=== PATIENT | female | born 2000 ===

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

== ENCOUNTER 2018-01-25 12:37 | Emergency (ER) | payer MEDICAID ==
[2018-01-25 12:37] VITALS: BMI 17.2
[2018-01-25 12:47] VITALS: O2SAT 100
--- NOTE | 2018-01-25 13:54 | ED PDOC ---
HPI: General Adult Time Seen by Provider: 01/25/18 13:08 Chief Complaint (Nursing): ENT Problem Chief Complaint (Provider): ENT Problem History Per: Patient History/Exam Limitations: no limitations Onset/Duration Of Symptoms: Days Current Symptoms Are (Timing): Still Present Additional Complaint(s): 17 year old female presents to the ED complaining of throat pain. States she has throat swelling since last night. Reports of difficulty swallowing, difficulty breathing, and neck pain. PMD: Non H Provider Past Medical History Reviewed: Historical Data, Nursing Documentation, Vital Signs Vital Signs: Last Vital Signs Temp 97.8 F 01/25/18 12:45 Pulse 90 01/25/18 12:45 Resp 16 01/25/18 12:45 BP 97/68 L 01/25/18 12:45 Pulse Ox 100 01/25/18 16:50 - Medical History PMH: Anxiety, Depression, Paranoia Denies: Diabetes, Hepatitis, HIV, HTN, Seizures, Sexually Transmitted Disease - Surgical History Surgical History: No Surg Hx - Family History Family History: States: Unknown Family Hx - Home Medications Home Medications: Ambulatory Orders Medication Instructions Recorded Ibuprofen [Motrin Tab] 1 tab PO Q6 PRN #15 tab 11/08/17 Amoxicillin/Clavulanate [Augmentin 1 tab PO BID #20 tab 01/25/18 875 MG-125 MG] Methylprednisolone [Medrol Dose 1 tab PO ASDIR #21 mg 01/25/18 Pack (21 tabs)] - Allergies Allergies/Adverse Reactions: Allergies Allergy/AdvReac Type Severity Reaction Status Date / Time No Known Allergies Allergy Verified 08/18/17 20:30 Review of Systems ROS Statement: Except As Marked, All Systems Reviewed And Found Negative ENT: Positive for: Throat Pain, Throat Swelling Musculoskeletal: Positive for: Neck Pain Neurological: Positive for: Headache Physical Exam - Reviewed Nursing Documentation Reviewed: Yes Vital Signs Reviewed: Yes - Physical Exam Appears: Positive for: Non-toxic, No Acute Distress Head Exam: Positive for: ATRAUMATIC, NORMAL INSPECTION, NORMOCEPHALIC Skin: Positive for: Normal Color, Warm, Dry ENT: Positive for: Tonsillar Exudate (erythema), Tonsillar Swelling (3+ tonsils bilaterally), Other (hot potato voice, excessive mouth secretions) Neck: Negative for: Normal (right-sided tenderness) Cardiovascular/Chest: Positive for: Regular Rate, Rhythm. Negative for: Murmur Respiratory: Positive for: Normal Breath Sounds. Negative for: Decreased Breath Sounds, Accessory Muscle Use, Respiratory Distress Neurologic/Psych: Positive for: Alert, Oriented (x3). Negative for: Motor/ Sensory Deficits - Laboratory Results Result Diagrams: 01/25/18 13:50 01/25/18 13:50 - ECG O2 Sat by Pulse Oximetry: 100 (RA) Pulse Ox Interpretation: Normal Medical Decision Making Medical Decision Making: Time: 131 Initial impression: r/o SURVEY TECHNICIAN Initial plan: --Neck Soft Tissue w/ Contrast [CT] --CMP --Urine --CBC w/ Differential --Decadron Inj 10mg --Toradol 30mg --Tylenol 650mg --Unasyn 3gm --Urinalysis Time: 1635 PROCEDURE: CT NECK WITH CONTRAST HISTORY: r/o SURVEY TECHNICIAN COMPARISON: None TECHNIQUE: CT of the neck with intravenous contrast. Coronal and sagittal reformats generated. Intravenous contrast dose: Omnipaque 300, 75 cc Radiation dose: DLP 329.76 mGy-cm This CT exam was performed using one or more of the following dose reduction techniques: Automated exposure control, adjustment of the mA and/or kV according to patient size, and/or use of iterative reconstruction technique. FINDINGS: There is prominence of the tonsillar pillars bilaterally without focal mass identifiable or cystic collection. No abscess is appreciated throughout the supra or infrahyoid neck in fact. The findings likely reflect tonsillitis. The lower nasopharyngeal airways somewhat compromise secondarily with the oropharynx widely patent posteriorly. No oral cavity lesions identified with the inferior pharynx, larynx and trachea were unremarkable. The vascular anatomy is unremarkable as well as incidental imaging through the bilateral pulmonary apices. GLANDS: Parotid and submandibular glands unremarkable. Normal size thyroid gland, without nodule. LYMPH NODES: Normal. No lymphadenopathy. CERVICAL SPINE: No fracture or focal lesion. OTHER FINDINGS: None. IMPRESSION: Findings most compatible with tonsillitis without phlegmon or discrete cyst. Asymmetry in enlargement makes difficult to exclude underlying focal lesion though none is clearly identified. Mild compromise of the lower days or pharyngeal airway is caused by tonsillar pillar enlargement bilaterally. The remainder of the examination is unremarkable Discharge with referral to ENT and rx augmentin and medrol dose pack Scribe Attestation: Documented by Mahesh Ferraro, acting as a scribe for Jace Mai PA-C. Provider Scribe Attestation: All medical record entries made by the Scribe were at my direction and personally dictated by me. I have reviewed the chart and agree that the record accurately reflects my personal performance of the history, physical exam, medical decision making, and the department course for this patient. I have also personally directed, reviewed, and agree with the discharge instructions and disposition. Disposition - Clinical Impression Clinical Impression: Acute tonsillitis, Tonsillitis, Streptococcal sore throat - Patient ED Disposition Is Patient to be Admitted: No Doctor Will See Patient In The: Office - Disposition Referrals: John Bell MD [Staff Provider] - Shahbaz Alcantar DO [Doctor Optometry] - Disposition: Routine/Home Disposition Time: 16:55 Condition: STABLE Prescriptions: Amoxicillin/Clavulanate [Augmentin 875 MG-125 MG] 1 tab PO BID #20 tab Methylprednisolone [Medrol Dose Pack (21 tabs)] 1 tab PO ASDIR #21 mg Instructions: Strep Throat (DC), Sore Throat, Adult (DC), Bacterial Upper Respiratory Infection, Adult (DC) Forms: [employer] (Citizen Of [place]), [facility] ED School/Work Excuse
[2018-01-25 14:15] LABS: BASO % 0.1 % (0.0-2.0); EOS # 0.1 K/uL (0.0-0.7); EOS % 1.1 % (0.0-4.0); HEMOGLOBIN 14.3 g/dL (12.0-16.0); LYMPH # 1.1 K/uL (1.0-4.3); LYMPH % 10.1 % (20.0-40.0); MEAN CELL VOLUME 88.6 fl (81.0-99.0); MEAN CORPUSCULAR HEMOGLOBIN 29.9 pg (27.0-31.0); MEAN CORPUSCULAR HGB CONC 33.8 g/dL (33.0-37.0); MEAN PLATELET VOLUME 8.4 fl (7.2-11.7); MONO # 1.2 K/uL (0.0-0.8); MONO % 11.1 % (0.0-10.0); NEUT # 8.5 K/uL (1.8-7.0); NEUT % 77.6 % (50.0-75.0); RBC 4.77 Mil/uL (3.80-5.20); RED CELL DISTRIBUTION WIDTH 13.4 % (11.5-14.5)
[2018-01-25 14:26] LABS: ALB/GLOB RATIO 1.2 (1.0-2.1); ALBUMIN 4.6 g/dL (3.5-5.0); ALT/SGPT 23 U/L (9-52); AST/SGOT 32 U/L (14-36); BLOOD UREA NITROGEN 7 mg/dl (7-17); CALCIUM 9.4 mg/dL (8.4-10.2); GFR AFRICAN-AMERICAN > 60; GFR NON-AFRICAN AMERICAN > 60; SQUAMOUS EPITHIAL 5 /hpf (0-5); URINE BILIRUBIN NEGATIVE (NEGATIVE); URINE BLOOD NEGATIVE (NEGATIVE); URINE CLARITY SLIGHTY-CLOUDY (Clear); URINE COLOR YELLOW (YELLOW); URINE GLUCOSE (UA) NEG (Normal); URINE LEUKOCYTE ESTERASE NEG Leu/uL (Negative); URINE PROTEIN NEGATIVE (NEGATIVE); URINE UROBILINOGEN 0.2-1.0 mg/dL (0.2-1.0)
[2018-01-25] MEDS ORDERED: Sodium Chloride 0.9% 50 ML IV ONE (15:18)
[2018-01-25] MEDS ORDERED: Iohexol 300 100 ML IJ ONE (15:18)
--- NOTE | 2018-01-25 16:38 | CT ---
PROCEDURE: CT NECK WITH CONTRAST HISTORY: r/o DENTAL INTERN COMPARISON: None TECHNIQUE: CT of the neck with intravenous contrast. Coronal and sagittal reformats generated. Intravenous contrast dose: Omnipaque 300, 75 cc Radiation dose: DLP 329.76 mGy-cm This CT exam was performed using one or more of the following dose reduction techniques: Automated exposure control, adjustment of the mA and/or kV according to patient size, and/or use of iterative reconstruction technique. FINDINGS: There is prominence of the tonsillar pillars bilaterally without focal mass identifiable or cystic collection. No abscess is appreciated throughout the supra or infrahyoid neck in fact. The findings likely reflect tonsillitis. The lower nasopharyngeal airways somewhat compromise secondarily with the oropharynx widely patent posteriorly. No oral cavity lesions identified with the inferior pharynx, larynx and trachea were unremarkable. The vascular anatomy is unremarkable as well as incidental imaging through the bilateral pulmonary apices. GLANDS: Parotid and submandibular glands unremarkable. Normal size thyroid gland, without nodule. LYMPH NODES: Normal. No lymphadenopathy. CERVICAL SPINE: No fracture or focal lesion. OTHER FINDINGS: None. IMPRESSION: Findings most compatible with tonsillitis without phlegmon or discrete cyst. Asymmetry in enlargement makes difficult to exclude underlying focal lesion though none is clearly identified. Mild compromise of the lower days or pharyngeal airway is caused by tonsillar pillar enlargement bilaterally. The remainder of the examination is unremarkable.
[2018-01-25 17:21] VITALS: BP 100/72; PULSE 80; RESP 17; TEMP 97.9
== END 2018-01-25 17:19 | disposition home or self-care (01) ==
LOC: H.ER 12:37
DX: J03.90 Acute tonsillitis, unspecified (principal); J02.0 Streptococcal pharyngitis; F41.9 Anxiety disorder, unspecified; F32.9 Major depressive disorder, single episode, unspecified
CPT/HCPCS: 70491; 80053; 81003; 81025; 85025; 96365; 96375; 99283; J0295; J1100; J1885; Q9967

== ENCOUNTER 2018-03-07 18:45 | Emergency (ER) | payer MEDICAID ==
[2018-03-07 18:45] VITALS: BMI 17.2
[2018-03-07 19:05] VITALS: RESP 18
--- NOTE | 2018-03-07 19:48 | ED PDOC ---
HPI: General Adult Time Seen by Provider: 03/07/18 19:46 Chief Complaint (Nursing): Female Genitourinary Chief Complaint (Provider): DYSURIA/SYNCOPE History Per: Patient (17 Y/O FEMALE HERE FOR EVALUATION OF DYSURIA THIS WEEK ASSOCIATED WITH BURNING WITH URINATION/LOWER ABDOMINAL PAIN. DENIES ANY VAG DISCHARGE. STATES SHE HAS ALSO SUFFERED MULTIPLE EPISODES OF SYNCOPE LAST EPISODE 1 MONTH AGO AND IS CONCERNED REGARDING THIS. DENIES ANY CHEST PAIN/ETC. ) Past Medical History Reviewed: Historical Data, Nursing Documentation, Vital Signs Vital Signs: Last Vital Signs Temp 98.2 F 03/07/18 19:02 Pulse 67 03/07/18 19:02 Resp 18 03/07/18 19:02 BP 111/75 03/07/18 19:02 Pulse Ox 100 03/07/18 19:52 - Medical History PMH: Anxiety, Depression, Paranoia Denies: Diabetes, Hepatitis, HIV, HTN, Seizures, Sexually Transmitted Disease - Family History Family History: States: Unknown Family Hx - Home Medications Home Medications: Ambulatory Orders Medication Instructions Recorded Ibuprofen [Motrin Tab] 1 tab PO Q6 PRN #15 tab 11/08/17 Amoxicillin/Clavulanate [Augmentin 1 tab PO BID #20 tab 01/25/18 875 MG-125 MG] Methylprednisolone [Medrol Dose 1 tab PO ASDIR #21 mg 01/25/18 Pack (21 tabs)] Cephalexin [Keflex] 500 mg PO TID #15 capsule 03/07/18 Phenazopyridine HCl [Pyridium] 200 mg PO Q12 PRN #6 tablet 03/07/18 - Allergies Allergies/Adverse Reactions: Allergies Allergy/AdvReac Type Severity Reaction Status Date / Time No Known Allergies Allergy Verified 03/07/18 19:02 Review of Systems ROS Statement: Except As Marked, All Systems Reviewed And Found Negative Physical Exam - Reviewed Nursing Documentation Reviewed: Yes Vital Signs Reviewed: Yes - Physical Exam Appears: Positive for: Well, Non-toxic, No Acute Distress Head Exam: Positive for: ATRAUMATIC, NORMAL INSPECTION, NORMOCEPHALIC Skin: Positive for: Normal Color, Warm, DRY Eye Exam: Positive for: EOMI, Normal appearance, PERRL ENT: Positive for: Normal ENT Inspection Neck: Positive for: Normal, Painless ROM Cardiovascular/Chest: Positive for: Regular Rate, Rhythm Respiratory: Positive for: CNT, Normal Breath Sounds Gastrointestinal/Abdominal: Positive for: Normal Exam, Soft. Negative for: Tenderness Back: Positive for: Normal Inspection. Negative for: L CVA Tenderness, R CVA Tenderness Extremity: Positive for: Normal ROM Neurologic/Psych: Positive for: Alert, Oriented - ECG ECG Rhythm: Positive for: Sinus Bradycardia (54BPM NO ECTOPY NO ACUTE CHANGES) O2 Sat by Pulse Oximetry: 100 Disposition - Clinical Impression Clinical Impression: Urinary tract infection, Syncope - Patient ED Disposition Is Patient to be Admitted: Transfer of Care - Disposition Disposition: Transfer of Care Disposition Time: 20:00 Condition: FAIR Prescriptions: Cephalexin [Keflex] 500 mg PO TID #15 capsule Phenazopyridine HCl [Pyridium] 200 mg PO Q12 PRN #6 tablet PRN Reason: Urinary Discomt Instructions: Syncope (Fainting) Patient Signed Over To: Naomie Black Handoff Comments: PENDING BLOODWORK
[2018-03-07 20:07] LABS: SQUAMOUS EPITHIAL 23 /hpf (0-5); URINE BACTERIA OCC (<OCC); URINE BILIRUBIN NEGATIVE (NEGATIVE); URINE BLOOD NEGATIVE (NEGATIVE); URINE CLARITY CLOUDY (Clear); URINE COLOR YELLOW (YELLOW); URINE GLUCOSE (UA) NEG (Normal); URINE LEUKOCYTE ESTERASE LARGE Leu/uL (Negative); URINE PROTEIN 100 mg/dL (NEGATIVE); URINE UROBILINOGEN 0.2-1.0 mg/dL (0.2-1.0)
[2018-03-07 21:12] LABS: BASO % 0.2 % (0.0-2.0); EOS # 0.1 K/uL (0.0-0.7); EOS % 1.3 % (0.0-4.0); HEMOGLOBIN 13.2 g/dL (12.0-16.0); LYMPH # 1.9 K/uL (1.0-4.3); LYMPH % 27.4 % (20.0-40.0); MEAN CELL VOLUME 88.7 fl (81.0-99.0); MEAN CORPUSCULAR HEMOGLOBIN 29.7 pg (27.0-31.0); MEAN CORPUSCULAR HGB CONC 33.5 g/dL (33.0-37.0); MEAN PLATELET VOLUME 8.5 fl (7.2-11.7); MONO # 0.7 K/uL (0.0-0.8); MONO % 10.2 % (0.0-10.0); NEUT # 4.2 K/uL (1.8-7.0); NEUT % 60.9 % (50.0-75.0); RBC 4.45 Mil/uL (3.80-5.20); RED CELL DISTRIBUTION WIDTH 12.8 % (11.5-14.5); WHITE BLOOD COUNT 6.9 K/uL (4.8-10.8)
[2018-03-07 21:39] LABS: ALB/GLOB RATIO 1.2 (1.0-2.1); ALBUMIN 4.3 g/dL (3.5-5.0); ALT/SGPT 19 U/L (9-52); AST/SGOT 27 U/L (14-36); BLOOD UREA NITROGEN 15 mg/dl (7-17); CALCIUM 9.3 mg/dL (8.4-10.2); GFR AFRICAN-AMERICAN > 60; GFR NON-AFRICAN AMERICAN > 60
--- NOTE | 2018-03-07 22:39 | ED PDOC ---
- Laboratory Results Result Diagrams: 03/07/18 21:04 03/07/18 21:04 - ECG O2 Sat by Pulse Oximetry: 100 - Progress ED Course And Treament: Case endorsed to freelance writer from Clement BLOCK pending labs, final dispo On re-eval, patient resting comfortably; states she is feeling better. Patient educated on findings, discharged with rx Keflex (dose given in ED), pyridium Advised follow up PMD 2-3 days. Fluids Return precautions given Disposition - Clinical Impression Clinical Impression: Urinary tract infection, Syncope - POA Present On Arrival: None - Disposition Disposition: Routine/Home Disposition Time: 22:39 Condition: IMPROVED Prescriptions: Cephalexin [Keflex] 500 mg PO TID #15 capsule Phenazopyridine HCl [Pyridium] 200 mg PO Q12 PRN #6 tablet PRN Reason: Urinary Discomt Instructions: Urinary Tract Infections in Adults, Syncope (Fainting)
[2018-03-07 22:54] VITALS: BP 109/70; PULSE 61; TEMP 97.9; O2SAT 97
--- NOTE | 2018-03-08 13:28 | CARD ---
APPROVED REPORT Date of service: 03/07/2018 EKG Measurement Heart [id number] <Conclusion> Sinus bradycardia Rightward axis Incomplete right bundle branch block Borderline ECG
== END 2018-03-07 22:54 | disposition home or self-care (01) ==
LOC: H.ER 18:45
DX: N39.0 Urinary tract infection, site not specified (principal); R55 Syncope and collapse; F32.9 Major depressive disorder, single episode, unspecified; F41.9 Anxiety disorder, unspecified

== ENCOUNTER 2018-06-27 08:53 | Emergency (ER) | payer MEDICAID ==
[2018-06-27 08:53] VITALS: BMI 17.2
[2018-06-27] MEDS ORDERED: Sodium Chloride 0.9% 1,000 ML IV STA (09:33)
--- NOTE | 2018-06-27 09:52 | ED PDOC ---
HPI: Abdomen Time Seen by Provider: 06/27/18 09:21 Chief Complaint (Nursing): Abdominal Pain Chief Complaint (Provider): Abdominal Pain History Per: Patient History/Exam Limitations: no limitations Onset/Duration Of Symptoms: Days (x1) Location Of Pain/Discomfort: Other (Below the umbilicus) Associated Symptoms: Fever, Vomiting, Urinary Symptoms (Darker smelly urine). denies: Other (vaginal bleeding or discharge) Additional Complaint(s): 17 years old female presents to ER for evaluation of fever and abdominal pain associated with vomiting onset last night. Patient knew she is in April and she was told it was too early to determine the date of . She reports her LNMP was in February but states she always had irregular menstruation. Patient states she was at a hospital last month and diagnosed with UTI. She is not compliant on her medication because she does not like medicine. Patient is agreeable today to take medications. When asked about painful urination she reports she only had been experiencing darker urine with a smell but no pain. Patient denies any vaginal discharge or bleeding. PMD: non provided Past Medical History Reviewed: Historical Data, Nursing Documentation, Vital Signs - Medical History PMH: Anxiety, Depression, Paranoia Denies: Diabetes, Hepatitis, HIV, HTN, Seizures, Sexually Transmitted Disease Other PMH: UTI - Surgical History Surgical History: No Surg Hx - Family History Family History: States: Unknown Family Hx - Social History Current smoker - smoking cessation education provided: No Alcohol: None Drugs: Denies - Home Medications Home Medications: Ambulatory Orders Medication Instructions Recorded RX: Ibuprofen [Motrin Tab] 1 tab PO Q6 PRN #15 tab 11/08/17 Amoxicillin/Clavulanate [Augmentin 1 tab PO BID #20 tab 01/25/18 875 MG-125 MG] Methylprednisolone [Medrol Dose 1 tab PO ASDIR #21 mg 01/25/18 Pack (21 tabs)] Cephalexin [Keflex] 500 mg PO TID #15 capsule 03/07/18 Phenazopyridine HCl [Pyridium] 200 mg PO Q12 PRN #6 tablet 03/07/18 Nitrofurantoin Macrocrystals 100 mg PO BID #10 cap 06/27/18 [Macrobid] - Allergies Allergies/Adverse Reactions: Allergies Allergy/AdvReac Type Severity Reaction Status Date / Time No Known Allergies Allergy Verified 03/07/18 19:02 Review of Systems ROS Statement: Except As Marked, All Systems Reviewed And Found Negative Constitutional: Positive for: Fever Gastrointestinal: Positive for: Vomiting, Abdominal Pain Genitourinary Female: Positive for: Other (Dark smelly urine). Negative for: Dysuria, Hematuria, Vaginal Discharge, Vaginal Bleeding Physical Exam - Reviewed Nursing Documentation Reviewed: Yes Vital Signs Reviewed: Yes - Physical Exam Appears: Positive for: Non-toxic, No Acute Distress Head Exam: Positive for: ATRAUMATIC, NORMOCEPHALIC Skin: Positive for: Normal Color, Warm, Dry Gastrointestinal/Abdominal: Positive for: Soft, Tenderness (to palpation below the umbilicus), Other (gravid) Back: Positive for: L CVA Tenderness, R CVA Tenderness Extremity: Positive for: Normal ROM Neurologic/Psych: Positive for: Alert, Oriented (x3), Other (Febrile) - Laboratory Results Result Diagrams: 06/27/18 09:53 06/27/18 09:53 Medical Decision Making Medical Decision Making: Time: 930 Initial plan: --Workup for UTI vs. pilonephritis --Determine IUP --Labs with urine and blood culture --IV fluids, Tylenol, Zofran --OB US 1150 OB US FINDINGS: UTERUS: Single Live intrauterine gestation. CRL measures 4.2 cm equivalent to 11 weeks and 0 day of gestational age. Gestational sac diameter measures 5.2 cm equivalent to 11 weeks and 0 day of gestational age. age (Ultrasound estimated): 11 weeks and 0 day Date of delivery (Ultrasound estimated) : 01/16/2019 Heart rate: One hundred fifty-nine bpm. Patrizia-gestational hemorrhage: None. Uterus measures 9.8 x 0.3 x 0.2 cm. No mass CERVIX: Long and closed. Cervical length measures 3.4 cm. No cervical abnormality seen. RIGHT OVARY: Not visualized. LEFT OVARY: Not visualized. FREE FLUID: None. OTHER FINDINGS: None. IMPRESSION: Single live intrauterine gestation with mean gestational age of 11 weeks and 0 day. The estimated date of delivery is 01/16/2019. There is a discrepancy with the clinical dates. Clinical follow-up is advised. Scribe Attestation: Documented by Consuelo Kennedy, acting as a scribe for Eliz Fuentes MD. Provider Scribe Attestation: All medical record entries made by the Scribe were at my direction and personally dictated by me. I have reviewed the chart and agree that the record accurately reflects my personal performance of the history, physical exam, medical decision making, and the department course for this patient. I have also personally directed, reviewed, and agree with the discharge instructions and disposition. 1245 US shows IUP with dates at 11 weeks and due date for 01/16/19. Labs WNL. UA unremarkable. Based on UTI symptoms and previous diagnosis of UTI which was not treated, will give Macrobid. Pt given [facility] and pt advised to follow up there. Return parameters discussed. Disposition - Clinical Impression Clinical Impression: Abdominal pain - Disposition [facility] [[facility]] Disposition: Routine/Home Disposition Time: 12:47 Condition: UNKNOWN Additional Instructions: take Medications as prescribed. Follow up with planned giving officer/beauty director in one week. Return to the emergency department if symptoms worsen or if new symptoms develop. Prescriptions: Nitrofurantoin Macrocrystals [Macrobid] 100 mg PO BID #10 cap Instructions: Acute Abdomen (Belly Pain), Adult (DC) Forms: [employer] (Persian) Print Language: SWAZI
[2018-06-27 09:59] LABS: VENOUS BLOOD GAS BASE EXCESS 0.8 mmol/L (0.0-2.0); VENOUS BLOOD GAS PCO2 49 mmHg (40-60); VENOUS BLOOD GAS PO2 22 mm/Hg (30-55); VENOUS BLOOD PH 7.35 (7.32-7.43)
[2018-06-27 10:04] LABS: SQUAMOUS EPITHIAL 4 /hpf (0-5); URINE BACTERIA RARE (<OCC); URINE BILIRUBIN NEGATIVE (NEGATIVE); URINE BLOOD NEGATIVE (NEGATIVE); URINE CLARITY CLOUDY (Clear); URINE COLOR YELLOW (YELLOW); URINE GLUCOSE (UA) NEG (Normal); URINE LEUKOCYTE ESTERASE NEG Leu/uL (Negative); URINE PROTEIN NEGATIVE (NEGATIVE); URINE UROBILINOGEN 0.2-1.0 mg/dL (0.2-1.0)
[2018-06-27 10:10] LABS: BASO % 0.2 % (0.0-2.0); EOS % 0.5 % (0.0-4.0); HEMOGLOBIN 12.8 g/dL (12.0-16.0); LYMPH # 1.1 K/uL (1.0-4.3); LYMPH % 12.5 % (20.0-40.0); MEAN CELL VOLUME 88.8 fl (81.0-99.0); MEAN CORPUSCULAR HEMOGLOBIN 29.2 pg (27.0-31.0); MEAN CORPUSCULAR HGB CONC 32.8 g/dL (33.0-37.0); MEAN PLATELET VOLUME 7.8 fl (7.2-11.7); MONO # 0.7 K/uL (0.0-0.8); MONO % 7.7 % (0.0-10.0); NEUT # 6.9 K/uL (1.8-7.0); NEUT % 79.1 % (50.0-75.0); RBC 4.39 Mil/uL (3.80-5.20); WHITE BLOOD COUNT 8.8 K/uL (4.8-10.8)
[2018-06-27 10:14] LABS: ALBUMIN 4.4 g/dL (3.5-5.0); ALT/SGPT 11 U/L (9-52); AST/SGOT 28 U/L (14-36); BLOOD UREA NITROGEN 10 mg/dl (7-17); CALCIUM 9.6 mg/dL (8.4-10.2); GFR NON-AFRICAN AMERICAN > 60; LIPASE 67 U/L (23-300)
[2018-06-27 11:43] VITALS: TEMP 98.4
[2018-06-27 11:44] VITALS: RESP 18
--- NOTE | 2018-06-27 11:54 | US ---
Date of service: 06/27/2018 PROCEDURE: OB Pelvic Ultrasound HISTORY: preg, abd pain, no conf IUP in past LMP: 02/26/2018 COMPARISON: None available. FINDINGS: UTERUS: Single Live intrauterine gestation. CRL measures 4.2 cm equivalent to 11 weeks and 0 day of gestational age. Gestational sac diameter measures 5.2 cm equivalent to 11 weeks and 0 day of gestational age. age (Ultrasound estimated): 11 weeks and 0 day Date of delivery (Ultrasound estimated) : 01/16/2019 Heart rate: One hundred fifty-nine bpm. Patrizia-gestational hemorrhage: None. Uterus measures 9.8 x 0.3 x 0.2 cm. No mass CERVIX: Long and closed. Cervical length measures 3.4 cm. No cervical abnormality seen. RIGHT OVARY: Not visualized. LEFT OVARY: Not visualized. FREE FLUID: None. OTHER FINDINGS: None. IMPRESSION: Single live intrauterine gestation with mean gestational age of 11 weeks and 0 day. The estimated date of delivery is 01/16/2019. There is a discrepancy with the clinical dates. Clinical follow-up is advised.
[2018-06-27 12:59] VITALS: BP 96/53; PULSE 81; O2SAT 99
== END 2018-06-27 12:58 | disposition home or self-care (01) ==
LOC: H.ER 08:53
DX: O26.891 Other specified pregnancy related conditions, first trimester (principal); Z3A.11 11 weeks gestation of pregnancy; O23.40 Unspecified infection of urinary tract in pregnancy, unspecified trimester
CPT/HCPCS: 76815; 76817; 80053; 81003; 81025; 82803; 83690; 85025; 87040; 87086; 87181; 96361; 96374; 99285; J2405; J7030

== ENCOUNTER → 2018-09-02 | Emergency (ER) | payer OTHER ==
[~2018-09-02] MED LIST: Lactated Ringer's 1,000 ML IV SCH
[2018-09-02 13:32] VITALS: BMI 19.1
[2018-09-02 14:19] LABS: BASO % 0.1 % (0.0-2.0); EOS % 0.4 % (0.0-4.0); HEMOGLOBIN 12.1 g/dL (12.0-16.0); LYMPH # 1.4 K/uL (1.0-4.3); LYMPH % 11.5 % (20.0-40.0); MEAN CORPUSCULAR HEMOGLOBIN 29.2 pg (27.0-31.0); MEAN CORPUSCULAR HGB CONC 32.8 g/dL (33.0-37.0); MEAN PLATELET VOLUME 8.3 fl (7.2-11.7); MONO % 8.3 % (0.0-10.0); NEUT # 9.4 K/uL (1.8-7.0); NEUT % 79.7 % (50.0-75.0); NRBC % 0.1 % (0.0-0.0); RBC 4.13 Mil/uL (3.80-5.20); RED CELL DISTRIBUTION WIDTH 13.4 % (11.5-14.5); WHITE BLOOD COUNT 11.8 K/uL (4.8-10.8)
[2018-09-02 14:29] LABS: BLOOD UREA NITROGEN 9 mg/dl (7-17); CALCIUM 9.5 mg/dL (8.4-10.2); GFR NON-AFRICAN AMERICAN > 60
[2018-09-02 14:32] LABS: SQUAMOUS EPITHIAL 6 /hpf (0-5); URINE BACTERIA RARE (<OCC); URINE BILIRUBIN NEGATIVE (NEGATIVE); URINE BLOOD NEGATIVE (NEGATIVE); URINE CLARITY CLOUDY (Clear); URINE COLOR YELLOW (YELLOW); URINE GLUCOSE (UA) NEG (NEGATIVE); URINE LEUKOCYTE ESTERASE TRACE Leu/uL (Negative); URINE PROTEIN NEGATIVE (NEGATIVE); URINE UROBILINOGEN 0.2-1.0 mg/dL (0.2-1.0)
--- NOTE | 2018-09-02 16:47 | US ---
Date of service: 09/02/2018 PROCEDURE: Ultrasound of the Kidneys HISTORY: right flank and RUQ pain w/ hx of UTI? R/o stone COMPARISON: None available. TECHNIQUE: Sonogram of the kidneys. FINDINGS: RIGHT KIDNEY: Measures: 11.0 x 5.5 x 5.5 cm. Normal in size, contour and echogenicity. No stone, solid mass lesion or hydronephrosis visualized. Mild prominence of the right renal collecting system decreased post micturition. LEFT KIDNEY: Measures: 10.1 x 4.1 x 4.7 cm. Normal in size, contour and echogenicity. No stone, solid mass lesion or hydronephrosis visualized. OTHER FINDINGS: Prevoid urinary bladder volume measures 57 mL. No postvoid residual volume is seen. Bilateral ureteral jets were visualized. IMPRESSION: Unremarkable renal sonogram. No nephrolithiasis or hydronephrosis. Decreased prominence of right renal collecting system post micturition.
[2018-09-02 22:40] VITALS: BP 103/61; PULSE 75; RESP 18; TEMP 98.8; O2SAT 99
--- NOTE | 2018-09-04 13:47 | OBHP ---
Datetime: 09/02/2018 13:14 IP Adm Impression: , intrauterine IP Admit Plan: Observation/Evaluation; Discharge home Admit Comment, IP Provider: 18 y/o female at 21wk GA presents to [facility] w/ c/o sharp, intermitten t, RUQ and back pain that is 10/10 in severity, w/ no allevating or aggravating factors. The pain is associated w/ nausea and multiple episodes of vomiting. She reports that she was dianogsed w/ a UTI l ast week and has taken 3 days of Macrobid thus far. Last bowel movement was a week ago. She endorses passing gas. She denies fevers, chills, urinary sx. She denies vaginal bleeding, lower abdominal cram ping, and endorses movement. OB: Dr. Melgar Pmhx: denies HomeRx: denies Allergies: NKDA SurgHx: denies Socialhx: no toxic habits Famhx: Maternal grandmother w/ HTN and DM ROS: negative except per HPI Physical Exam: Vitally stable, afebrile Gen: lying comfortably in bed Heart: S1S2 present, RRR Lungs: normal resp effort, clear to auscultation bilaterally Abd: Gravid, soft, non-tender, normal BS Back: right sided tenderness, no signs of trauma, no lesions/erythema/swelling Extremities: no tenderness/erythema/swelling Assessment and Plan 18 y/o female at 21wk IUP w/ recent/reccurent UTI c/o abd/back back + n/v Afebrile, hemodynamically stable 1L LR IV @ 125mL/hr for hydration NPO, then liquid...advance as tolerated CBC/BMP Renal u/s to r/o nephrolithiasis Will monitor patient and reevaluate 4:49PM Patient is feeing better, tolerating PO. Denies any pain at this time. WBC 11.8, CBC and CM P otherwise not significant. Patient will follow up w/ Dr. Melgar in office this Tuesday. Patient is s table for discharge to home w/ ER precautions advised. Patient advised to continue taking antibiotics until course is completed. Case discussed w/ Dr. Shon Bucio, pgyi Attending Note: Patient was seen and examined with resident and I agree with the above. Extremities - PN: Normal Abdomen - PN: Normal Back - PN: Abnormal Breast - PN: Not Done Lungs - PN: Normal Heart - PN: Normal Thyroid - PN: Not Done Neurologic - PN: Not Done HEENT - PN: Not Done General - PN: Normal Gestation - Est Wks by US: 21.0 EGA AdmitDate IP: 21.0 Vital Signs Provider: Reviewed; Within Normal Limits IP Chief Complaint: Other Genitourinary Exam: Not Done
== END | disposition home or self-care (01) ==
LOC: H.EROB2 12:35
DX: O23.42 Unspecified infection of urinary tract in pregnancy, second trimester (principal); O26.92 Pregnancy related conditions, unspecified, second trimester; R10.2 Pelvic and perineal pain; M54.9 Dorsalgia, unspecified; O21.0 Mild hyperemesis gravidarum; Z3A.21 21 weeks gestation of pregnancy
CPT/HCPCS: 76770; 80048; 81003; 85025; 87086; 99283; J7120

== ENCOUNTER 2018-09-05 23:51 | Emergency (ER) | payer OTHER ==
[2018-09-06 05:53] VITALS: BMI 20.3
[2018-09-06 06:16] LABS: BASO % 0.1 % (0.0-2.0); EOS % 0.2 % (0.0-4.0); HEMOGLOBIN 12.1 g/dL (12.0-16.0); LYMPH # 0.4 K/uL (1.0-4.3); LYMPH % 4.6 % (20.0-40.0); MEAN CELL VOLUME 87.4 fl (81.0-99.0); MEAN CORPUSCULAR HEMOGLOBIN 29.3 pg (27.0-31.0); MEAN CORPUSCULAR HGB CONC 33.5 g/dL (33.0-37.0); MEAN PLATELET VOLUME 8.3 fl (7.2-11.7); MONO # 0.6 K/uL (0.0-0.8); MONO % 7.2 % (0.0-10.0); NEUT # 6.9 K/uL (1.8-7.0); NEUT % 87.9 % (50.0-75.0); PLATELET COUNT 231 K/uL (130-400); RBC 4.14 Mil/uL (3.80-5.20); RED CELL DISTRIBUTION WIDTH 13.5 % (11.5-14.5); WHITE BLOOD COUNT 7.8 K/uL (4.8-10.8)
--- NOTE | 2018-09-06 06:25 | CP.PCM.CON ---
History of Present Illness - History of Present Illness History of Present Illness: General Surgery Consult Note: Dr. Benz 18F with no significant past medical history who is 21 weeks presents to [facility] with complaints of abdominal pain. Patient states she has been experiencing right upper quadrant pain since Tuesday. Patient had been evaluated on 09/02 and was discharged home after initial work up was negative. She comes back with persistent right upper quadrant abdominal pain. Patient states pain is localized to RUQ denies radiation. RUQ pain is associated and worsen with fatty food intake. Patient reports being nauseous and having multiple bouts of non bloody emesis throughout the weekend. Patient reports subjective chills. Denies headache/dizziness, chest pain, shortness of breath, dysuria. PMH: as stated above PSH:none All: NKDA Soc Hx: Denies EtOH use. Denies smoking, illicit drug use. Review of Systems - Review of Systems Review of Systems: 10 pt ROS negative, except as stated in HPI Past Patient History - Past Social History Smoking Status: Never Smoked - CARDIAC Hx Hypertension: No - PULMONARY Hx Tuberculosis: No - NEUROLOGICAL Hx Seizures: No - ENDOCRINE/METABOLIC Other/Comment: Hormonal imbalance - PMDD - HEMATOLOGICAL/ONCOLOGICAL Hx Human Immunodeficiency Virus (HIV): No - GENITOURINARY/GYNECOLOGICAL Hx Sexually Transmitted Disorders: No - PSYCHIATRIC Hx Anxiety: Yes Hx Depression: Yes Hx Paranoia: Yes - SURGICAL HISTORY Hx Surgeries: No - ANESTHESIA Hx Anesthesia: No Meds Allergies/Adverse Reactions: Allergies Allergy/AdvReac Type Severity Reaction Status Date / Time No Known Allergies Allergy Verified 03/07/18 19:02 Physical Exam - Constitutional Appears: Non-toxic - Head Exam Head Exam: NORMOCEPHALIC - Eye Exam Eye Exam: EOMI, Normal appearance - ENT Exam ENT Exam: Mucous Membranes Moist - Cardiovascular Exam Cardiovascular Exam: +S1, +S2 - GI/Abdominal Exam GI & Abdominal Exam: Soft, Tenderness. absent: Firm, Guarding, Rebound, Rigid Additional comments: RUQ tenderness to deep palpation uterine fundal height at about umbilicus - Neurological Exam Neurological exam: Alert, Oriented x3 - Skin Skin Exam: Dry, Intact, Warm Results - Labs Result Diagrams: 09/06/18 02:30 Labs: Laboratory Results - last 24 hr 09/06/18 02:30 WBC 7.8 RBC 4.14 Hgb 12.1 Hct 36.2 MCV 87.4 MCH 29.3 MCHC 33.5 RDW 13.5 Plt Count 231 MPV 8.3 Neut % (Auto) 87.9 H Lymph % (Auto) 4.6 L Rush % (Auto) 7.2 Eos % (Auto) 0.2 Baso % (Auto) 0.1 Neut # (Auto) 6.9 Lymph # (Auto) 0.4 L Rush # (Auto) 0.6 Eos # (Auto) 0.0 Baso # (Auto) 0.0 Assessment & Plan - Assessment and Plan (Free Text) Assessment: 18F with RUQ abdominal pain Plan: NPO IVF Recommend RUQ U/S Will make further recs based on U/S findings Further recs per Dr. Benz
[2018-09-06 07:04] LABS: LYMPHOCYTE 7 % (20-50); MONOCYTE 9 % (0-10); NEUTROPHIL 84 % (42-75); PLATELET ESTIMATE NORMAL (NORMAL); TOTAL CELLS COUNTED 100
[2018-09-06 07:05] LABS: ANISOCYTOSIS SLIGHT; LARGE PLATELETS PRESENT; OVALOCYTES MODERATE
[2018-09-06 07:07] LABS: BLOOD UREA NITROGEN 14 mg/dl (7-17); GFR NON-AFRICAN AMERICAN > 60
[2018-09-06 07:08] LABS: ALBUMIN 3.8 g/dL (3.5-5.0); ALT/SGPT 18 U/L (9-52); AMYLASE 62 U/L (30-110); AST/SGOT 23 U/L (14-36); CALCIUM 8.7 mg/dL (8.4-10.2); LIPASE 36 U/L (23-300)
--- NOTE | 2018-09-06 08:45 | OBHP ---
Datetime: 09/06/2018 01:10 IP Adm Impression: , intrauterine IP Chief Complaint Other: Nausea, vomiting IP Admit Plan: Observation/Evaluation Admit Comment, IP Provider: 18 y/o female at 21.4 wk GA based on 1st trimester US presents to [facility] with nause and vomiting that started 4 days ago. Patient was seen on 09/02/18 in [facility] was given LR 1L, CBC, CMP US abdomen was unremarkable. Patient was also seen at Dr. Melgar's office today and was t old to go ER if symptoms worsens. Patient had 4 episodes of vomiting today with last episode at 19:00 hr. Patient has been NPO since then. Patient also reports mild RUQ pain with rib tenderness. Appetit e is decreased. Denies any fever, chills, diarrhea, constipation, headache or dizziness. Patient reports all her family members are having gastroenteritis that started on 09/02/18 with mandi sea, vomiting and diarrhea. care: Dr. Melgar, Patient goes to [facility] and [facility] and was told to get US Q2 weeks. 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 Physical Exam: Vitally stable, afebrile Gen: lying comfortably in bed, NAD Heart: S1S2 present, RRR Lungs: normal resp effort, clear to auscultation bilaterally Abd: Gravid, soft, non-tender, normal BS Chest: right sided anterior rib tenderness, no signs of trauma, no lesions/erythema/swelling Extremities: no tenderness/erythema/swelling Assessment and Plan 18 y/o female at 21.4wk IUP presents with nausea, vomiting and R rib pain. Afebrile, hemodynamically stable 1L LR IV @ 999ml/hr CBC, CMP, AMylase and lipase WNL. Will monitor patient and reevaluate Surgery consulted, recommends US RUQ area to r/o GB/cholecystitis. US ordered, waiting results. 7:49AM 09/06/18: Verbal report received for US: No GB stone or cholycystitis. Mild hydronephrosis n oted. Patient stable to DC home. Labor precautions provided. patient to F/U with Dr. Melgar within 1 week for follow up. ER precautions provided. Case discussed with OB attending. Olman Vaughan, PGY1 OB Hospitalist note: With PGY1, I saw and examined this patient. Pt had been seen by surgery/abd sono only showed hydronephrosis...Zofran script written MAHNDO Pelvic Type - PN: Not Done Extremities - PN: Normal Abdomen - PN: Abnormal Back - PN: Normal Breast - PN: Normal Lungs - PN: Normal Heart - PN: Normal Thyroid - PN: Normal Neurologic - PN: Normal HEENT - PN: Normal General - PN: Normal EGA AdmitDate IP: 21.4 Vital Signs Provider: Reviewed IP Chief Complaint: Other Genitourinary Exam: Not Done DTRs - PN: Not Done
--- NOTE | 2018-09-06 08:47 | OBDCSUM ---
Datetime: 09/06/2018 08:13 Discharged to, Provider: Home Follow up at, Provider: OB Disch Instr Activity: Normal activity; Bedrest; May be up to bathroom; May be up for meals; May Show er Disch Instr Diet: Regular Discharge Time: 09/06/2018 08:13 Follow up in weeks, Provider: make appt Discharge Diagnosis Prov Other: Gastroenteritis
--- NOTE | 2018-09-06 11:18 | US ---
Date of service: 09/06/2018 HISTORY: RUQ pain COMPARISON: Renal ultrasound dated 09/02/2018 TECHNIQUE: Sonographic evaluation of the abdomen. FINDINGS: LIVER: Measures 14.7 cm. Normal echogenicity of the liver parenchyma. No mass. No intrahepatic bile duct dilatation. GALLBLADDER: Unremarkable. No gallstones. COMMON BILE DUCT: Measures 4 mm. No stones. No dilatation. PANCREAS: Unremarkable as visualized. No mass. No ductal dilatation. RIGHT KIDNEY: Measures 11.9 x 7.2 x 5.0cm. Mild right hydronephrosis. Normal echogenicity. No calculus or mass. LEFT KIDNEY: Measures 11.2 x 5.6 x 5.5cm. Normal echogenicity. No calculus, mass, or hydronephrosis. SPLEEN: Normal in size and contour. No mass. AORTA: No aneurysmal dilatation. IVC: Unremarkable. OTHER FINDINGS: None. IMPRESSION: Mild persistent right hydronephrosis.
[2018-09-06 13:04] VITALS: BP 94/52; PULSE 78; RESP 18; TEMP 97.5
== END 2018-09-06 08:05 | disposition home or self-care (01) ==
LOC: H.EROB2 23:51
DX: O21.0 Mild hyperemesis gravidarum (principal); O26.92 Pregnancy related conditions, unspecified, second trimester; R10.2 Pelvic and perineal pain; R07.9 Chest pain, unspecified; R63.0 Anorexia; Z3A.21 21 weeks gestation of pregnancy

== ENCOUNTER 2018-10-09 10:54 | Emergency (ER) | payer OTHER ==
[2018-10-09 12:12] VITALS: BMI 20.9
--- NOTE | 2018-10-09 13:45 | US ---
Date of service: 10/09/2018 PROCEDURE: Limited obstetrical ultrasound. HISTORY: RLQ pain at 26+ weeks, CERVICAL LENGTH r/p PTL COMPARISON: 06/27/2018. Summary of findings on the comparison examination: Single live intrauterine gestation 11 weeks. DELONTE 01/16/2019. TECHNIQUE: Summary of findings on the comparison examination: FINDINGS: Cervical length 3.66 cm. Cardiac rate 138 beats per minute. Cephalic presentation. IMPRESSION: Cervical length 3.66 cm.
[2018-10-09 14:47] LABS: SQUAMOUS EPITHIAL 4 /hpf (0-5); URINE BACTERIA FEW (<OCC); URINE BILIRUBIN NEGATIVE (NEGATIVE); URINE BLOOD LARGE (NEGATIVE); URINE CLARITY CLOUDY (Clear); URINE COLOR YELLOW (YELLOW); URINE GLUCOSE (UA) NEG (NEGATIVE); URINE LEUKOCYTE ESTERASE MOD Leu/uL (Negative); URINE PROTEIN 100 mg/dL (NEGATIVE); URINE UROBILINOGEN 0.2-1.0 mg/dL (0.2-1.0); WBC CLUMPS OCC /hpf
[2018-10-09] MEDS ORDERED: ceFAZolin 1 GM in Sodium Chloride 0.9% 100 ML IVPB ONE (15:08)
[2018-10-09] MEDS ORDERED: Lactated Ringer's 1,000 ML IV SCH (15:15)
[2018-10-09 15:34] LABS: BASO % 0.2 % (0.0-2.0); EOS # 0.2 K/uL (0.0-0.7); EOS % 1.4 % (0.0-4.0); HEMOGLOBIN 11.2 g/dL (12.0-16.0); LYMPH # 1.3 K/uL (1.0-4.3); LYMPH % 9.8 % (20.0-40.0); MEAN CELL VOLUME 86.9 fl (81.0-99.0); MEAN CORPUSCULAR HEMOGLOBIN 28.8 pg (27.0-31.0); MEAN CORPUSCULAR HGB CONC 33.2 g/dL (33.0-37.0); MEAN PLATELET VOLUME 8.3 fl (7.2-11.7); MONO # 1.1 K/uL (0.0-0.8); MONO % 8.6 % (0.0-10.0); NEUT # 10.7 K/uL (1.8-7.0); PLATELET COUNT 240 K/uL (130-400); RBC 3.88 Mil/uL (3.80-5.20); RED CELL DISTRIBUTION WIDTH 13.5 % (11.5-14.5); WHITE BLOOD COUNT 13.4 K/uL (4.8-10.8)
[2018-10-09 16:16] LABS: ANISOCYTOSIS SLIGHT; BANDS 4 % (0-2); HYPOCHROMIC SLIGHT; LYMPHOCYTE 12 % (20-50); MONOCYTE 5 % (0-10); NEUTROPHIL 79 % (42-75); PLATELET ESTIMATE NORMAL (NORMAL); TOTAL CELLS COUNTED 100
--- NOTE | 2018-10-09 18:27 | OBHP ---
Datetime: 10/09/2018 12:48 IP Adm Impression: , intrauterine IP Admit Plan: Observation/Evaluation; Discharge home Admit Comment, IP Provider: 18-year-old at 26.3 weeks presents for RLQ abdominal pain which beg an at 1am (about 10 hours prior to presentation). The pain has been present earlier in but would subside, however she feels as though this time it is constant. She endorses good movement . Denies vaginal bleeding, loss of fluid from vagina, fever, vomiting, headache, change in vision and new-onset edema. Patient reports increased urinary frequency and malodorous, dark urine. Good appet ite. Two previous UTI's throughout , does not take any prophylactic medications. Primary OBG YN is Dr Melgar, seen last 10/05; next apt 10/[address] robison. OBGYN: Dr. Melgar, followed at [facility] _ by Luis PMHx: Thyroid disorder (Dx in pregnnacy) but not on any medication and +NGOC OBHx: , Fetus Dx with [facility] (followed at [facility] _ by Dr Robison) PSHx: Denies Allergies: NKDA F/H: Noncontributory SOcialHx: Denies ETOH/smoking/drugs Medications: PNVs. Physical Exam: VS: wnl Gen: lying comfortably in bed, NAD Heart: RRR Lungs: no respiratory distress Abd: IUP, tenderness to palpation RLQ and suprapubic Extremities: no edema Skin: no rash ROS: all other systems reviewed and negative unless otherwise noted in HPI. A+P: 18-year-old at 26.3 weeks presents for LRQ abdominal pain which began at 1am (about 10 h ours prior to presentation). -TVU/S - Cervical length 3.66cm, FHR 138 bpm -SVE: closed/thick/high, no vaginal bleeding noted -NST: reassuring, patient does not appear to be olena -ED precautions given; recommend follow-up with scheduled appointments Case seen and discussed with Dr Senthil Barragan PGY1 OB Hospitalist Addendum: Pt seen and examined by me. Agree w/ above. 18 yo G1 at 26+3 wks woke u p w/ pain in RLQ, reports that the pain is on and off also reports urine has strong odor and she has urgency. Pt reports that the area of her belly gets hard when she has the pain and the pain radiates to her back. Pt reports that she has had this pain in the past w/ this preg. Gen'l pt appears in N AD, no suprapubic tenderness, positive RLQ tenderness and slight distention in the area of pain is ap preciated. Cx closed and thick at 1209 and unchanged at 1800. WBC 13.4, Hgb 11.2, UA- large blood, +RBCs, + WBC clumps, few bacteria. CL 3.66 cm. Pt given IVF, 1 gram ancef. Pt discharged home and t ols to try tylenol for pain. Pain may be d/t baby's position or movement. Pt prefers to start oral abx if urine cx is positive. (ES) Pelvic Type - PN: Adequate Extremities - PN: Normal Abdomen - PN: Normal Back - PN: Normal Breast - PN: Normal Lungs - PN: Normal Heart - PN: Normal Thyroid - PN: Not Done Neurologic - PN: Not Done HEENT - PN: Normal General - PN: Normal FHR - Baseline A Provider: 138 Membranes, Provider: Intact Pool Provider: Negative EGA AdmitDate IP: 26.2 Vital Signs Provider: Reviewed; Within Normal Limits IP Chief Complaint: Signs/symptoms UTI; Maternal discomfort Dilatation, Provider: 0 Effacement, Provider: 0 Station, Provider: -3 Genitourinary Exam: Normal DTRs - PN: Not Done
[2018-10-09 22:53] VITALS: BP 110/62; PULSE 75; RESP 18; TEMP 98.5; O2SAT 100
== END 2018-10-09 18:27 | disposition home or self-care (01) ==
LOC: H.EROB2 10:54
DX: O26.92 Pregnancy related conditions, unspecified, second trimester (principal); R10.2 Pelvic and perineal pain; Z3A.26 26 weeks gestation of pregnancy
CPT/HCPCS: 76817; 81003; 85025; 87086; 96361; 96365; 99284; J0690; J7120

== ENCOUNTER 2018-10-15 04:39 | Inpatient (IN) | payer OTHER ==
[2018-10-15 06:10] VITALS: BMI 21.1
[2018-10-15] MEDS ORDERED: Lactated Ringer's 1,000 ML IV SCH ×2 (06:15→11:30)
[2018-10-15] MEDS: cefTRIAXone 2 GM in Sodium Chloride 0.9% 100 ML IVPB SCH ×2 (06:41→09:00)
[2018-10-15 07:06] LABS: BASO % 0.2 % (0.0-2.0); EOS # 0.2 K/uL (0.0-0.7); EOS % 1.5 % (0.0-4.0); HEMOGLOBIN 10.8 g/dL (12.0-16.0); LYMPH # 1.7 K/uL (1.0-4.3); LYMPH % 11.9 % (20.0-40.0); MEAN CELL VOLUME 85.1 fl (81.0-99.0); MEAN CORPUSCULAR HEMOGLOBIN 29.4 pg (27.0-31.0); MEAN CORPUSCULAR HGB CONC 34.6 g/dL (33.0-37.0); MEAN PLATELET VOLUME 8.2 fl (7.2-11.7); MONO # 1.7 K/uL (0.0-0.8); MONO % 11.3 % (0.0-10.0); NEUT % 75.1 % (50.0-75.0); RBC 3.68 Mil/uL (3.80-5.20); RED CELL DISTRIBUTION WIDTH 13.5 % (11.5-14.5); WHITE BLOOD COUNT 14.6 K/uL (4.8-10.8)
[2018-10-15 07:12] LABS: SQUAMOUS EPITHIAL < 1 /hpf (0-5); URINE BILIRUBIN NEGATIVE (NEGATIVE); URINE BLOOD SMALL (NEGATIVE); URINE CLARITY CLOUDY (Clear); URINE COLOR YELLOW (YELLOW); URINE GLUCOSE (UA) NEG (NEGATIVE); URINE LEUKOCYTE ESTERASE LARGE Leu/uL (Negative); URINE PROTEIN 100 mg/dL (NEGATIVE); URINE UROBILINOGEN 0.2-1.0 mg/dL (0.2-1.0)
[2018-10-15 07:19] LABS: ALB/GLOB RATIO 0.9 (1.0-2.1); ALBUMIN 3.8 g/dL (3.5-5.0); ALT/SGPT 12 U/L (9-52); AMYLASE 82 U/L (30-110); AST/SGOT 25 U/L (14-36); BLOOD UREA NITROGEN 10 mg/dl (7-17); CALCIUM 9.2 mg/dL (8.4-10.2); GFR NON-AFRICAN AMERICAN > 60; LIPASE 57 U/L (23-300)
[2018-10-15 07:41] LABS: BARBITURATES, UR NEGATIVE (NEGATIVE); BENZODIAZEPINES, UR NEGATIVE (NEGATIVE); OPIATES, UR NEGATIVE (NEGATIVE); PHENCYCLIDINE, UR NEGATIVE (NEGATIVE)
[2018-10-15] MEDS: Lactated Ringer's 1,000 ML IV SCH ×3 (08:00→23:46)
--- NOTE | 2018-10-15 10:34 | US ---
Date of service: 10/15/2018 PROCEDURE: Ultrasound of the Kidneys HISTORY: flank pain COMPARISON: Abdominal ultrasound dated 09/06/2018. TECHNIQUE: Sonogram of the kidneys. FINDINGS: RIGHT KIDNEY: Measures: 11.9 x 6.0 x 6.5 cm. Moderate right hydronephrosis. Normal in size, contour and echogenicity. No stone or solid mass lesion visualized. LEFT KIDNEY: Measures: 11.5 x 6.0 x 4.8 cm. Normal in size, contour and echogenicity. No stone, solid mass lesion or hydronephrosis visualized. OTHER FINDINGS: None. IMPRESSION: Moderate right hydronephrosis.
--- NOTE | 2018-10-15 10:37 | US ---
Date of service: 10/15/2018 PROCEDURE: OB Pelvic Ultrasound HISTORY: pain COMPARISON: Pelvic ultrasound dated 10/09/2018. FINDINGS: UTERUS: Placenta: Posterior Presentation: Oblique, variable BPD: 6.9 cm compatible with estimated gestational age of 27 weeks, 5 days HC: 25.4 cm compatible with estimated gestational age of 27 weeks, 4 days AC: 22.2 cm compatible with estimated gestational age of 26 weeks, 4 days FL: 5.2 cm compatible with estimated gestational age of 27 weeks, 4 days Heart rate: 146 bpm. age (Ultrasound estimated): 27 weeks, 3 days Patrizia-gestational hemorrhage: None. Date of delivery (Ultrasound estimated) : 01/11/2019 EFW: 1029 grams +/-154.42 gram (2 pounds 4 ounces +/-5 ounces) CERVIX: Measures 3.9 cm. Long and closed. No cervical abnormality seen. FREE FLUID: None. OTHER FINDINGS: None. IMPRESSION: Single live intrauterine gestation with average ultrasound age of 27 weeks, 3 days. heart rate 146 beats per minute. Cervix long and closed.
[2018-10-15 12:33] VITALS: RESP 18; O2SAT 100
--- NOTE | 2018-10-15 14:13 | OBADHP ---
Datetime: 10/15/2018 06:06 IP Adm Impression Other: Pyelonephritis Admit Comment, IP Provider: at 27wks GA presents c/o right abd and back pain. +nausea. Pt den ies VB,LoF,ctxs. Pt reprts good FM. +nausea. Denies F/C. Pt had recent +urine culture PMHx denies PSHx denies Meds PNV OBHx SocHx denies tob,etoh,drugs A: Abdominal and back pain, positive urine culture. Likely pyelonephritis. P: Admit for management IV antibiotics IVF hydration pain control OB sono with [facility] Renal sono Surgical consultation Discussed plan with patient and all patient questions answered. Pelvic Type - PN: Adequate Extremities - PN: Normal Abdomen - PN: Normal Back - PN: Normal Breast - PN: Normal Lungs - PN: Normal Heart - PN: Normal Thyroid - PN: Normal Neurologic - PN: Normal HEENT - PN: Normal General - PN: Normal FHR - Baseline A Provider: 140s Contraction Comments Provider: none Comments, ACOG Physical Exam: Cervix L/C/P No blood,fluid,discharge Abdomen soft/NT/ND No rebound/gaurding Normal BS IP Chief Complaint: Maternal discomfort NICHD Variability Prov Fetus A: Moderate 6-25bpm NICHD Decel Fetus A IP Provider: None Dilatation, Provider: 0 Effacement, Provider: 0 Station, Provider: -4 Genitourinary Exam: Normal DTRs - PN: Normal EGA AdmitDate IP: 27.1 IP Admit Plan: Admit to unit Datetime: 10/09/2018 12:48 Membranes, Provider: Intact Pool Provider: Negative Vital Signs Provider: Reviewed; Within Normal Limits IP Adm Impression: , intrauterine Datetime: 09/06/2018 01:10 IP Chief Complaint Other: Nausea, vomiting Datetime: 09/02/2018 13:14 Gestation - Est Wks by US: 21.0
--- NOTE | 2018-10-15 18:01 | CP.PCM.CON ---
History of Present Illness - History of Present Illness History of Present Illness: General Surgery: Dr Benz Pt is a 18F with no significant PMH. Currently at 27wks GA. Presents complaining of right sided abdominal pain x 7 days. Pt reports the pain has come and gone over the course of the work but past 24 hours has been worse. Located mainly on the ride side, anterior axillary line. Pain radiates down into the pelvis and up the right flank. Pain is worse with movement or pressure. Admits to dysuria, nausea/vomiting when the pain is present. Having normal bowel movements. Has been tolerating food throughout the week prior to yesterday. Currently NPO. Denies any fevers, chills, shortness of breath, diarrhea or constipation. Work- up notable for +UA and right sided hydronephrosis. Current ddx pyelonephritis, on ceftriaxone PMHx: denies PSHx: denies Social: denies etoh, drugs MEds: PNV Review of Systems - Review of Systems All systems: reviewed and no additional remarkable complaints except (as per hpi) Past Patient History - Past Social History Smoking Status: Never Smoked - CARDIAC Hx Hypertension: No - PULMONARY Hx Tuberculosis: No - NEUROLOGICAL Hx Seizures: No - ENDOCRINE/METABOLIC Other/Comment: Hormonal imbalance - PMDD - HEMATOLOGICAL/ONCOLOGICAL Hx Human Immunodeficiency Virus (HIV): No - GENITOURINARY/GYNECOLOGICAL Hx Sexually Transmitted Disorders: No - PSYCHIATRIC Hx Anxiety: Yes Hx Depression: Yes Hx Paranoia: Yes - SURGICAL HISTORY Hx Surgeries: No - ANESTHESIA Hx Anesthesia: No Meds Allergies/Adverse Reactions: Allergies Allergy/AdvReac Type Severity Reaction Status Date / Time No Known Allergies Allergy Verified 10/15/18 06:09 - Medications Medications: Current Medications Lactated Ringer's (Lactated Ringer's) 1,000 mls @ 125 mls/hr IV .Q8H [facility] Last Admin: 10/15/18 15:54 Dose: 125 mls/hr Ceftriaxone Sodium 2 gm/ (Sodium Chloride) 100 mls @ 100 mls/hr IVPB DAILY@0600 [facility]; Protocol Ondansetron HCl (Zofran Inj) 4 mg IVP Q4 PRN PRN Reason: Nausea/Vomiting Physical Exam - Constitutional Appears: Non-toxic - Head Exam Head Exam: NORMAL INSPECTION - Eye Exam Eye Exam: Normal appearance - ENT Exam ENT Exam: Mucous Membranes Moist - Respiratory Exam Respiratory Exam: absent: Accessory Muscle Use, Respiratory Distress - Cardiovascular Exam Cardiovascular Exam: REGULAR RHYTHM. absent: Tachycardia - GI/Abdominal Exam GI & Abdominal Exam: Distended, Soft, Tenderness (very minimal rlq tenderness). absent: Firm, Guarding, Hernia, Rebound, Rigid Additional comments: - rovsings - rebound + psoas - obturators - Rectal Exam Rectal Exam: Deferred - Extremities Exam Extremities exam: Negative for: pedal edema - Neurological Exam Neurological exam: Alert, Oriented x3 Results - Vital Signs Recent Vital Signs: Last Vital Signs Temp 98.6 F 10/15/18 11:48 Pulse 74 10/15/18 11:48 Resp 18 10/15/18 11:48 BP 108/59 L 10/15/18 11:48 Pulse Ox 100 10/15/18 11:48 - Labs Result Diagrams: 10/15/18 06:40 10/15/18 06:40 Labs: Laboratory Results - last 24 hr 10/15/18 10/15/18 10/15/18 06:40 06:40 06:40 WBC 14.6 H RBC 3.68 L Hgb 10.8 L Hct 31.4 L MCV 85.1 MCH 29.4 MCHC 34.6 RDW 13.5 Plt Count 275 MPV 8.2 Neut % (Auto) 75.1 H Lymph % (Auto) 11.9 L [place] % (Auto) 11.3 H Eos % (Auto) 1.5 Baso % (Auto) 0.2 Neut # (Auto) 11.0 H Lymph # (Auto) 1.7 [place] # (Auto) 1.7 H Eos # (Auto) 0.2 Baso # (Auto) 0.0 Sodium 136 Potassium 3.8 Chloride 101 Carbon Dioxide 23 Anion Gap 16 BUN 10 Creatinine 0.4 L Est GFR ( Amer) > 60 Est GFR (Non-Af Amer) > 60 Random Glucose 81 Calcium 9.2 Total Bilirubin 0.2 AST 25 ALT 12 Alkaline Phosphatase 118 Total Protein 7.8 Albumin 3.8 Globulin 4.0 H Albumin/Globulin Ratio 0.9 L Amylase 82 Lipase 57 Urine Color Yellow Urine Clarity Cloudy Urine pH 6.0 Ur Specific [place] 1.013 Urine Protein 100 Urine Glucose (UA) Neg Urine Ketones Negative Urine Blood Small Urine Nitrate Negative Urine Bilirubin Negative Urine Urobilinogen 0.2-1.0 Ur Leukocyte Esterase Large Urine RBC (Auto) 20 H Urine Microscopic WBC 171 H Ur Squamous Epith Cells < 1 Urine Opiates Screen Urine Methadone Screen Ur Barbiturates Screen Ur Phencyclidine Scrn Ur Amphetamines Screen U Benzodiazepines Scrn U Oth Cocaine Metabols U Cannabinoids Screen RPR Blood Type Antibody Screen BBK History Checked 10/15/18 10/15/18 10/15/18 06:40 11:55 11:55 WBC RBC Hgb Hct MCV MCH MCHC RDW Plt Count MPV Neut % (Auto) Lymph % (Auto) [place] % (Auto) Eos % (Auto) Baso % (Auto) Neut # (Auto) Lymph # (Auto) [place] # (Auto) Eos # (Auto) Baso # (Auto) Sodium Potassium Chloride Carbon Dioxide Anion Gap BUN Creatinine Est GFR ( Amer) Est GFR (Non-Af Amer) Random Glucose Calcium Total Bilirubin AST ALT Alkaline Phosphatase Total Protein Albumin Globulin Albumin/Globulin Ratio Amylase Lipase Urine Color Urine Clarity Urine pH Ur Specific [place] Urine Protein Urine Glucose (UA) Urine Ketones Urine Blood Urine Nitrate Urine Bilirubin Urine Urobilinogen Ur Leukocyte Esterase Urine RBC (Auto) Urine Microscopic WBC Ur Squamous Epith Cells Urine Opiates Screen Negative Urine Methadone Screen Negative Ur Barbiturates Screen Negative Ur Phencyclidine Scrn Negative Ur Amphetamines Screen Negative U Benzodiazepines Scrn Negative U Oth Cocaine Metabols Negative U Cannabinoids Screen Negative RPR Nonreactive Blood Type O POSITIVE Antibody Screen Negative BBK History Checked Patient has bt Assessment & Plan - Assessment and Plan (Free Text) Assessment: 18F 27wks GA, with 1 week abdominal pain: ddx pyelonephritis, less likely appendicitis Plan: clinical history and presentation unlikely appendicitis, afebrile, no tach ycardia, minimal discomfort Appendix can be displaced in patients making PE findings less " classic''' no adequate visualization of appendix but findings give alternative reason for symptoms i.e. UTI w/ pyelonephritis would continue abx, OK for PO intake cont to monitor, if no improvement on abx would recommend MRI to r/o appendicits trend leukocytosis will continue to follow d/w Dr Demar Morocho, PGY4
[2018-10-16] MEDS ORDERED: cefTRIAXone 2 GM in Sodium Chloride 0.9% 100 ML IVPB SCH ×2 (06:00)
--- NOTE | 2018-10-16 07:18 | CP.PCM.PN ---
Subjective - Date & Time of Evaluation Date of Evaluation: 10/16/18 Time of Evaluation: 07:15 - Subjective Subjective: General Surgery: Dr Benz 18 y/o female with no significant PMHx, Currently at 27 wks GA seen and evaluated this morning for right sided abdominal pain. Patient denies any pain at this time, and able to tolerate food without any nausea or vomiting. Denies any fevers, chills, shortness of breath, diarrhea or constipation. Objective - Vital Signs/Intake and Output Vital Signs (last 24 hours): Temp Pulse Resp BP Pulse Ox 98.6 F 74 18 108/59 L 100 10/15/18 11:48 10/15/18 11:48 10/15/18 11:48 10/15/18 11:48 10/15/18 11:48 - Medications Medications: Current Medications Lactated Ringer's (Lactated Ringer's) 1,000 mls @ 125 mls/hr IV .Q8H [facility] Last Admin: 10/15/18 23:46 Dose: 125 mls/hr Ceftriaxone Sodium 2 gm/ (Sodium Chloride) 100 mls @ 100 mls/hr IVPB DAILY@0600 [facility]; Protocol Last Admin: 10/16/18 05:27 Dose: 100 mls/hr Ondansetron HCl (Zofran Inj) 4 mg IVP Q4 PRN PRN Reason: Nausea/Vomiting - Labs Labs: 10/15/18 06:40 10/15/18 06:40 - Constitutional Appears: Well, Non-toxic, No Acute Distress - Head Exam Head Exam: NORMAL INSPECTION - ENT Exam ENT Exam: Mucous Membranes Moist - Respiratory Exam Respiratory Exam: absent: Accessory Muscle Use, Respiratory Distress - Cardiovascular Exam Cardiovascular Exam: REGULAR RHYTHM. absent: Tachycardia - GI/Abdominal Exam GI & Abdominal Exam: absent: Distended, Firm, Guarding, Tenderness Additional comments: - Right lower quadrant tenderness at this time Assessment and Plan - Assessment and Plan (Free Text) Assessment: 18 y/o female 27wks GA, with 1 week abdominal pain: ddx likely pyelon ephritis Plan: diet as tolerated continue Abx symptoms likely due to UTI/pyelonephritis patient asymptomatic abdominal exam management as per [employer] Work Program Director will discuss with Dr. Demar Moore, PGY1
[2018-10-16] MEDS: Lactated Ringer's 1,000 ML IV SCH (08:00)
[2018-10-16 08:14] LABS: HEMOGLOBIN 9.7 g/dL (12.0-16.0); MEAN CELL VOLUME 86.7 fl (81.0-99.0); MEAN CORPUSCULAR HEMOGLOBIN 29.3 pg (27.0-31.0); MEAN CORPUSCULAR HGB CONC 33.8 g/dL (33.0-37.0); RBC 3.32 Mil/uL (3.80-5.20); RED CELL DISTRIBUTION WIDTH 13.3 % (11.5-14.5); WHITE BLOOD COUNT 9.6 K/uL (4.8-10.8)
--- NOTE | 2018-10-16 11:41 | OBPN ---
Datetime: 10/16/2018 11:35 IP Progress Plan: Discharge Contraction Comments Provider: none FHR - Baseline A Provider: 145 IP Progress Note Comment: Patient evaluated at bedside. Patient reports pain has improved, patient i s afebrile for past 2 days, no new signs of pylonephritis. Urine culture still pending. Patient has r eceived 2 doses of Rocephin. NST this morning was non-reactive - BPP = 8/8, TERESA=18. Discussed plan of care with patient. Will continue Keflex PO x 12 days and will get daily PO antibiotics until deliver y. Patient reported that she has not had BM for 2 wks - discussed starting with OTC Miralax. Patient to be discharged this morning and will follow up in office this afternoon for growth. Has follow up a ppt with me in office next week. All questions answered - f/u in 1 week Vital Signs Provider: Reviewed; Within Normal Limits NICHD Variability Prov Fetus A: Moderate 6-25bpm NICHD Decel Fetus A IP Provider: None Datetime: 10/15/2018 06:06 Dilatation, Provider: 0 Effacement, Provider: 0 Station, Provider: -4 Datetime: 10/09/2018 12:48 Pool Provider: Negative Membranes, Provider: Intact Datetime: 09/02/2018 13:14 Gestation - Est Wks by US: 21.0
--- NOTE | 2018-10-16 11:43 | OBDCSUM ---
Datetime: 10/16/2018 11:30 Discharged to, Provider: Home Follow up at, Provider: Dr. Melgar Disch Instr Activity: Normal activity Disch Instr Diet: Regular Discharge Instructions, Provider: Routine instructions given Discharge Time: 10/16/2018 11:30 Follow up in weeks, Provider: next week Disch Referrals: None Contraception discussed, Prov: No Discharge Diagnosis Prov Other: 27 wks, pyelonephritis
--- NOTE | 2018-10-16 14:30 | US ---
Date of service: 10/16/2018 PROCEDURE: Biophysical profile score HISTORY: Nonreactive NST COMPARISON: 10/15/2018 stent trickle ultrasound TECHNIQUE: Standard protocol for this study/examination. FINDINGS: FINDINGS: Biophysical profile score 8/8 Based on the followin. breathing movements: 2/2 2. Gross body movement: 2/2 3. tone: 2/2 4. Qualitative amniotic fluid index: 2/2 Amniotic fluid index 18.32 cm. Posterior placenta. Cephalic presentation. Cardiac rate 155 beats per minute. IMPRESSION: Biophysical profile score 8/8.
[2018-10-16 16:30] VITALS: BP 108/63; PULSE 88; TEMP 98.3
== END 2018-10-16 12:28 | disposition home or self-care (01) | DRG 832 ==
LOC: H.EROB2 04:39 → H.L&D 11:48 → H.OB/GYN 15:30
PROVIDERS: ADMIT Obstetrics & Gynecology; ATTEND Obstetrics & Gynecology
PROC: 4A1HXCZ Monitoring of Products of Conception, Cardiac Rate, External Approach (ICD-10-PCS; principal; 2018-10-15)
DX: O23.02 Infections of kidney in pregnancy, second trimester (principal); N13.6 Pyonephrosis; O21.2 Late vomiting of pregnancy; Z3A.27 27 weeks gestation of pregnancy

== ENCOUNTER 2018-12-06 17:16 | Emergency (ER) | payer OTHER ==
--- NOTE | 2018-12-06 17:30 | OBHP ---
Datetime: 10/16/2018 11:35 FHR - Baseline A Provider: 145 Contraction Comments Provider: none Vital Signs Provider: Reviewed; Within Normal Limits NICHD Variability Prov Fetus A: Moderate 6-25bpm NICHD Decel Fetus A IP Provider: None Datetime: 10/15/2018 06:06 IP Adm Impression Other: Pyelonephritis IP Admit Plan: Admit to unit Admit Comment, IP Provider: at 27wks GA presents c/o right abd and back pain. +nausea. Pt den ies VB,LoF,ctxs. Pt reprts good FM. +nausea. Denies F/C. Pt had recent +urine culture PMHx denies PSHx denies Meds PNV OBHx SocHx denies tob,etoh,drugs A: Abdominal and back pain, positive urine culture. Likely pyelonephritis. P: Admit for management IV antibiotics IVF hydration pain control OB sono with [facility] Renal sono Surgical consultation Discussed plan with patient and all patient questions answered. Pelvic Type - PN: Adequate Extremities - PN: Normal Abdomen - PN: Normal Back - PN: Normal Breast - PN: Normal Lungs - PN: Normal Heart - PN: Normal Thyroid - PN: Normal Neurologic - PN: Normal HEENT - PN: Normal General - PN: Normal Comments, ACOG Physical Exam: Cervix L/C/P No blood,fluid,discharge Abdomen soft/NT/ND No rebound/gaurding Normal BS EGA AdmitDate IP: 27.1 IP Indication for Induction: Not Applicable IP Chief Complaint: Maternal discomfort Dilatation, Provider: 0 Effacement, Provider: 0 Station, Provider: -4 Genitourinary Exam: Normal DTRs - PN: Normal
[2018-12-06 18:13] VITALS: BMI 21.9
[2018-12-06 18:37] LABS: BASO % 0.1 % (0.0-2.0); EOS # 0.1 K/uL (0.0-0.7); EOS % 0.6 % (0.0-4.0); HEMOGLOBIN 10.2 g/dL (12.0-16.0); LYMPH # 1.4 K/uL (1.0-4.3); LYMPH % 12.6 % (20.0-40.0); MEAN CELL VOLUME 83.3 fl (81.0-99.0); MEAN CORPUSCULAR HEMOGLOBIN 27.4 pg (27.0-31.0); MEAN CORPUSCULAR HGB CONC 32.8 g/dL (33.0-37.0); MONO # 1.2 K/uL (0.0-0.8); MONO % 11.3 % (0.0-10.0); NEUT # 8.3 K/uL (1.8-7.0); NEUT % 75.4 % (50.0-75.0); NRBC % 0.2 % (0.0-0.0); RBC 3.72 Mil/uL (3.80-5.20); RED CELL DISTRIBUTION WIDTH 13.9 % (11.5-14.5)
--- NOTE | 2018-12-06 19:14 | OBHP ---
Datetime: 12/06/2018 18:23 IP Adm Impression: , intrauterine IP Chief Complaint Other: Fainting at 34+ weeks IP Admit Plan: Observation/Evaluation IP Admit Plan Other: Transfer to ED Admit Comment, IP Provider: 18 yo G1 at 34+4 wks w/ EDC 01/13/2019 reports that everytime she goes f or a walk or stands for a while, she faints, loses consciousness. Pt reports that she was walking to day and then sat down at a [employer] and then had sweating and nausea and then fainted, denies head or belly trauma. Pt reports that she now feels drained and exhausted. Pt reports that she was going to see a shift lab technician about these sx on ., 12/12/3018. Pt reports thayt she has been experienci ng these episodes since she was a child. Pt denies ctns, VB, and LOF, reports movement. Pt re ports that the baby feels very low to her for a while now. Pt admites shakira she hasn't been taking her PNVs. Pt also admits that she doesn't drink that much water. All other systems reviewed and negati ve. 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 NST reactive. Hgb 10.2. on 10/26/2018, H gb was 10.3. Rec that she start OTC iron supplement, ie. Slow fe. Pt transferred to ED for further evaluation. Pt has an appoint w/ Dr. Melgar on 12/12/2018. Extremities - PN: Normal Abdomen - PN: Normal Back - PN: Normal Lungs - PN: Normal Heart - PN: Normal Neurologic - PN: Normal General - PN: Normal FHR - Baseline A Provider: 130's EGA AdmitDate IP: 34.4 Vital Signs Provider: Reviewed IP Chief Complaint: Other NICHD Variability Prov Fetus A: Moderate 6-25bpm NICHD Accel Fetus A IP Provider: [id number] FHR Category Provider Fetus A: Category I NICHD Decel Fetus A IP Provider: None
--- NOTE | 2018-12-06 19:14 | OBDCSUM ---
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 Discharge Diagnosis Prov Other: fainting at 34+4 weeks
[2018-12-06 19:42] VITALS: RESP 16
--- NOTE | 2018-12-06 20:05 | ED PDOC ---
Syncope/Near Syncope/Dizziness Time Seen by Provider: 12/06/18 19:46 Chief Complaint (Nursing): Syncope History Per: Patient History/Exam Limitations: no limitations Onset/Duration Of Symptoms: Mins Additional Complaint(s): 18 year old F, 34 weeks , presenting with syncopal episode. States that she has had "fainting problems" all her life but during this she states they have been occurring with increased frequency. Today she states she was standing for a prolonged period of time and then was walking, felt nauseated, sweaty, and had to lower herself to the ground. Denies abdominal pain, vaginal bleeding. Denies chest pain, shortness of breath prior to or after the incident. Patient admits that she has not maintained adequate hydration during the . States she had a "kidney infection" during the as well. No fevers, headaches, head injury. Past Medical History Reviewed: Historical Data, Nursing Documentation, Vital Signs Vital Signs: Last Vital Signs Temp 98.9 F 12/06/18 19:38 Pulse 90 12/06/18 19:38 Resp 16 12/06/18 19:38 BP 121/69 12/06/18 19:38 Pulse Ox 99 12/06/18 19:38 - Medical History PMH: Anxiety, Paranoia Denies: Depression, Diabetes, Hepatitis, HIV, HTN, Seizures, Sexually Transmitted Disease - Family History Family History: States: Unknown Family Hx - Home Medications Home Medications: Ambulatory Orders Medication Instructions Recorded Vit No.126/Iron/Folic 1 tab PO DAILY MDD 1 10/15/18 [Classic Tablet] Cephalexin [Keflex] 500 mg PO BID 12 Days #24 capsule 10/16/18 - Allergies Allergies/Adverse Reactions: Allergies Allergy/AdvReac Type Severity Reaction Status Date / Time No Known Allergies Allergy Verified 12/06/18 19:27 Review of Systems ROS Statement: Except As Marked, All Systems Reviewed And Found Negative Cardiovascular: Negative for: Chest Pain, Palpitations, Orthopnea Respiratory: Negative for: Cough Physical Exam - Reviewed Nursing Documentation Reviewed: Yes Vital Signs Reviewed: Yes - Physical Exam Appears: Positive for: Well, Non-toxic, No Acute Distress Head Exam: Positive for: ATRAUMATIC, NORMAL INSPECTION, NORMOCEPHALIC Skin: Positive for: Normal Color, Warm, DRY Eye Exam: Positive for: EOMI, Normal appearance, PERRL ENT: Positive for: Normal ENT Inspection Neck: Positive for: Normal, Painless ROM Cardiovascular/Chest: Positive for: Regular Rate, Rhythm Respiratory: Positive for: CNT, Normal Breath Sounds Gastrointestinal/Abdominal: Positive for: Normal Exam, Soft. Negative for: Tenderness (Gravid Uterus) Back: Positive for: Normal Inspection Extremity: Positive for: Normal ROM Neurological/Psych: Positive for: Awake, Alert, Normal Tone - Laboratory Results Result Diagrams: 12/06/18 18:31 - ECG O2 Sat by Pulse Oximetry: 99 Pulse Ox Interpretation: Normal Medical Decision Making Medical Decision Makin18 year old F with syncopal episode --Patient was evaluated by OB-ED and cleared from obstetric perspective --Patient has no complaints at this time, states she feels "fine", and looks very well --EKG shows NSR at 88 bpm, no ST/T-wave chagnes, no depressions/elevations/block/arrhythmia --FS 103 --Advised patient that her symptoms are most likely related to dehydration and encouraged increased PO fluids throughout the --Patient has appointment with Dr. Purcell next week Disposition - Clinical Impression Clinical Impression: Syncope, Dehydration - Patient ED Disposition Is Patient to be Admitted: No - Disposition Referrals: Perry Purcell MD [Staff Provider] - Disposition: Routine/Home Disposition Time: 20:09 Condition: GOOD Instructions: Syncope (Fainting), Dehydration, Adult (DC)
[2018-12-06 20:38] VITALS: O2SAT 100
--- NOTE | 2018-12-07 08:20 | CARD ---
APPROVED REPORT Date of service: 12/06/2018 EKG Measurement Heart [id number] <Conclusion> Normal sinus rhythm Normal ECG
[2018-12-08 01:51] VITALS: BP 108/64; PULSE 91; TEMP 98.5
== END 2018-12-06 20:09 | disposition home or self-care (01) ==
LOC: H.ER 17:16 → H.EROB2 17:16 → H.ER 20:09
DX: R55 Syncope and collapse (principal); E86.0 Dehydration; O21.1 Hyperemesis gravidarum with metabolic disturbance